=== PATIENT | female | born 1995 | race Caucasian/White ===

== ENCOUNTER 2017-10-30 13:58 | Emergency (ER) | payer OTHER ==
[~2017-10-30] VITALS: Ht 170.2 cm; Wt 66.2 kg
[2017-10-30] MEDS ORDERED: PRENATAL + DHA1 EAC1 (14:29)
== END 2017-10-30 18:48 | disposition home or self-care (01) ==
LOC: ER 13:58
DX: O21.0 Mild hyperemesis gravidarum (principal); Z34.01 Encounter for supervision of normal first pregnancy, first trimester

== ENCOUNTER 2019-09-28 05:45 | Inpatient (IN) | payer OTHER ==
[~2019-09-28] VITALS: Ht 172.7 cm; Wt 73.9 kg
[~2019-09-28 05:45] MED LIST: PRENATAL + DHA1 EAC1 PO
== END 2019-09-30 14:48 | disposition home or self-care (01) | DRG 807 ==
LOC: LDR 05:45 → OB/GYN 17:54
PROVIDERS: ADMIT Specialist
PROC: 10E0XZZ Delivery of Products of Conception, External Approach (ICD-10-PCS; principal; 2019-09-28)
PROC: 10907ZC Drainage of Amniotic Fluid, Therapeutic from Products of Conception, Via Natural or Artificial Opening (ICD-10-PCS; 2019-09-28)
PROC: 0W8NXZZ Division of Female Perineum, External Approach (ICD-10-PCS; 2019-09-28)
PROC: 3E033VJ Introduction of Other Hormone into Peripheral Vein, Percutaneous Approach (ICD-10-PCS; 2019-09-28)
PROC: 4A1HXCZ Monitoring of Products of Conception, Cardiac Rate, External Approach (ICD-10-PCS; 2019-09-28)
DX: O80 Encounter for full-term uncomplicated delivery (principal); Z37.0 Single live birth; Z3A.38 38 weeks gestation of pregnancy